=== PATIENT | female | born 2000 | race Two or more races ===

== ENCOUNTER 2024-02-17 12:39 | Outpatient (CLI) | payer OTHER ==
[2024-02-17] MEDS ORDERED: RINGERS SOLUTION,LACTATED 1,000 ML IV SCH (13:00)
[2024-02-17 13:29] LABS: PH,URINE 6.5 (5.0-8.0); URINE APPEARANCE Clear; URINE BILIRRUBIN Negative (NEGATIVE); URINE BLOOD Negative; URINE COLOR Yellow; URINE GLUCOSE Negative (NEGATIVE); URINE KETONE Negative (NEGATIVE); URINE LEUKOCYTE Negative; URINE NITRATE Negative; URINE PROTEIN Negative (NEGATIVE); URINE UROBILINOGEN 0.2 E.U./dl
[2024-02-17 13:30] LABS: URINE BACTERIA 647.5 uL (0.0-1933); URINE EPITHELIAL CELLS 55.7 uL (0.0-38.8); URINE WBC 13.1 uL (0.0-23.2)
[2024-02-17 13:32] LABS: HEMATOCRIT 31.6 % (36.0-45.00); HEMOGLOBIN 10.8 g/dL (12.0-15.00); MEAN CELL VOLUME 78.2 fL (80.00-100.00); MEAN CORPUSCULAR HEMOGLOBIN 26.7 pg (27.00-32.0); MEAN CORPUSCULAR HGB CONC 34.3 g/dl (32.0-36.0); PLATELET COUNT 216 K/uL (150-450); RED BLOOD COUNT 4.04 M/uL (4.00-6.00); RED CELL DISTRIBUTION WIDTH 16.2 % (11.5-14.5)
[2024-02-17 13:37] LABS: URINE CAST 0.15 uL (0.0-1.40)
[2024-02-17] MEDS ORDERED: PRENATAL CAPLE1 EAC1 (15:16)
== END 2024-02-17 19:38 | disposition home or self-care (01) ==
LOC: OBS/DEL 12:39
PROVIDERS: Obstetrics & Gynecology; ATTEND Specialist
DX: O26.892 Other specified pregnancy related conditions, second trimester (principal); T14.90XA Injury, unspecified, initial encounter; V49.9XXA Car occupant (driver) (passenger) injured in unspecified traffic accident, initial encounter

== ENCOUNTER 2024-04-16 00:32 | Outpatient (CLI) | payer OTHER ==
[2024-04-15 23:11] VITALS: BP 107/69; O2SAT 98
[~2024-04-16 00:32] MED LIST: PRENATAL CAPLE1 EAC1
[2024-04-16] MEDS ORDERED: RINGERS SOLUTION,LACTATED 1,000 ML IV SCH (00:45)
[2024-04-16] MEDS ORDERED: CHILDREN'S ASPI81 MG PO (01:32)
[2024-04-16] MEDS ORDERED: PRENATAL PLUS1 EAC1 PO (01:32)
[2024-04-16] MEDS ORDERED: IRON236 MG (01:33)
[2024-04-16] MEDS ORDERED: CALCIUM500 M1 (01:33)
[2024-04-16 02:10] LABS: PH,URINE 5.5 (5.0-8.0); URINE APPEARANCE Clear; URINE BILIRRUBIN Negative (NEGATIVE); URINE BLOOD Negative; URINE COLOR Yellow; URINE GLUCOSE Negative (NEGATIVE); URINE KETONE 15 (NEGATIVE); URINE LEUKOCYTE Negative; URINE NITRATE Negative; URINE PROTEIN Negative (NEGATIVE); URINE UROBILINOGEN 0.2 E.U./dl
[2024-04-16 02:12] LABS: HEMATOCRIT 30.1 % (36.0-45.00); HEMOGLOBIN 10.1 g/dL (12.0-15.00); MEAN CELL VOLUME 78.6 fL (80.00-100.00); MEAN CORPUSCULAR HEMOGLOBIN 26.3 pg (27.00-32.0); MEAN CORPUSCULAR HGB CONC 33.5 g/dl (32.0-36.0); PLATELET COUNT 217 K/uL (150-450); RED BLOOD COUNT 3.83 M/uL (4.00-6.00); RED CELL DISTRIBUTION WIDTH 16.4 % (11.5-14.5)
[2024-04-16 02:13] LABS: URINE BACTERIA 415.7 uL (0.0-1933); URINE EPITHELIAL CELLS 35.8 uL (0.0-38.8); URINE WBC 12.8 uL (0.0-23.2)
[2024-04-16 02:55] LABS: URINE RBC 1.6 uL (0.0-20.8)
[2024-04-16 03:06] LABS: ALBUMIN 2.8 gm/dL (3.4-5.0); BILIRUBIN TOTAL 0.33 mg/dL (0.3-1.2); CALCIUM 8.9 mg/dL (8.5-10.1); CREATININE SERUM 0.5 mg/dL (0.55-1.02); GFR 150.33; GLOBULINA 3.5 G/DL (2.4-3.5); POTASSIUM 3.51 mEq/L (3.5-5.1); TOTAL PROTEIN 6.3 gm/dL (6.4-8.2)
[2024-04-16 04:00] VITALS: BP 97/57
[2024-04-16 07:36] VITALS: BP 99/63; O2SAT 99
[2024-04-16 11:57] VITALS: BP 116/73
[2024-04-16 12:25] VITALS: BP 116/73
== END 2024-04-16 12:25 | disposition home or self-care (01) ==
LOC: OBS/DEL 00:32
PROVIDERS: ATTEND Specialist
DX: O99.013 Anemia complicating pregnancy, third trimester (principal); Z3A.29 29 weeks gestation of pregnancy

== ENCOUNTER 2024-06-27 07:14 | Inpatient (IN) | payer OTHER ==
[~2024-06-27] VITALS: Ht 165.1 cm; Wt 3.2 kg
[~2024-06-27 07:14] MED LIST changes: +CALCIUM500 M1; +CHILDREN'S ASPI81 MG PO; +IRON236 MG; +PRENATAL PLUS1 EAC1 PO
[2024-06-27 07:33] VITALS: BP 120/57
[2024-06-27] MEDS ORDERED: MISOPROSTOL 25 MCG/4 ML GEL.W.APPL VAG ONE (08:15)
[2024-06-27 08:42] LABS: PH,URINE 5.5 (5.0-8.0); URINE APPEARANCE Clear; URINE BILIRRUBIN Negative (NEGATIVE); URINE BLOOD Negative; URINE COLOR Yellow; URINE KETONE Negative (NEGATIVE); URINE LEUKOCYTE Negative; URINE NITRATE Negative; URINE PROTEIN Negative (NEGATIVE); URINE UROBILINOGEN 0.2 E.U./dl
[2024-06-27 08:54] LABS: HEMATOCRIT 35.7 % (36.0-45.00); HEMOGLOBIN 11.6 g/dL (12.0-15.00); MEAN CELL VOLUME 79.6 fL (80.00-100.00); MEAN CORPUSCULAR HEMOGLOBIN 25.8 pg (27.00-32.0); MEAN CORPUSCULAR HGB CONC 32.5 g/dl (32.0-36.0); PLATELET COUNT 191 K/uL (150-450); RED BLOOD COUNT 4.49 M/uL (4.00-6.00); RED CELL DISTRIBUTION WIDTH 17.3 % (11.5-14.5)
[2024-06-27 08:56] LABS: URINE BACTERIA 195.8 uL (0.0-1933); URINE EPITHELIAL CELLS 22.9 uL (0.0-38.8); URINE WBC 16.1 uL (0.0-23.2)
[2024-06-27 08:58] LABS: URINE CAST 0.14 uL (0.0-1.40); URINE GLUCOSE 250 MG/DL (NEGATIVE); URINE RBC 0.5 uL (0.0-20.8)
[2024-06-27] MEDS ORDERED: RINGERS SOLUTION,LACTATED 1,000 ML IV SCH (09:00)
[2024-06-27 09:08] LABS: INR < 0.93; PROTHROMBIN TIME 10.1 SECONDS (9.0-11.5)
[2024-06-27 09:28] LABS: ALBUMIN 2.8 gm/dL (3.4-5.0); BILIRUBIN TOTAL 0.45 mg/dL (0.3-1.2); CALCIUM 9.1 mg/dL (8.5-10.1); CREATININE SERUM 0.6 mg/dL (0.55-1.02); GFR 121.8; GLOBULINA 3.6 G/DL (2.4-3.5); POTASSIUM 3.93 mEq/L (3.5-5.1); TOTAL PROTEIN 6.4 gm/dL (6.4-8.2)
[2024-06-27] MEDS ORDERED: OXYTOCIN 500 ML IV SCH (11:45)
[2024-06-27 16:01] VITALS: BP 129/70
[2024-06-27] MEDS ORDERED: MEPERIDINE HCL/PF 50 MG/ML VIAL IV ONE (18:15)
[2024-06-27] MEDS ORDERED: PROMETHAZINE HCL 25 MG/ML AMPUL IV ONE (18:15)
[2024-06-27 18:25] VITALS: BP 143/75
[2024-06-27 20:27] VITALS: BP 136/70
[2024-06-27 23:20] VITALS: BP 130/76
[2024-06-28] MEDS ORDERED: MEPERIDINE HCL/PF 50 MG/ML VIAL IV SCH (01:00)
[2024-06-28] MEDS ORDERED: KETOROLAC TROMETHAMINE 60 MG VIAL IM ONE (01:00)
[2024-06-28] MEDS ORDERED: PROMETHAZINE HCL 25 MG/ML AMPUL IV SCH (01:00)
[2024-06-28] MEDS ORDERED: OXYTOCIN 10 UNITS/ML VIAL IV ONE (01:45)
[2024-06-28] MEDS ORDERED: ERYTHROMYCIN BASE OPHT 1GM EACH TUBE OP ONE (01:45)
[2024-06-28] MEDS ORDERED: MORPHINE SULFATE 4 MG/ML VIAL IV ONE (03:30)
[2024-06-28 05:20] VITALS: BP 121/69
[2024-06-28] MEDS ORDERED: DOCUSATE CALCIUM 240 MG CAPSULE PO SCH (09:00)
[2024-06-28] MEDS ORDERED: OxyCODONE HCL/APAP UD (PERCOCET) PO SCH (09:00)
[2024-06-28] MEDS ORDERED: SIMETHICONE 125 MG CAPSULE PO SCH (09:00)
[2024-06-28] MEDS ORDERED: CEFOXITIN SODIUM 1,000 MG in DEXTROSE 5 % IN WATER 50 ML IV SCH (09:00)
[2024-06-28 09:39] VITALS: BP 134/74
[2024-06-28 09:54] LABS: HEMATOCRIT 34.6 % (36.0-45.00); HEMOGLOBIN 11.4 g/dL (12.0-15.00); MEAN CELL VOLUME 80.2 fL (80.00-100.00); MEAN CORPUSCULAR HEMOGLOBIN 26.4 pg (27.00-32.0); MEAN CORPUSCULAR HGB CONC 32.9 g/dl (32.0-36.0); PLATELET COUNT 168 K/uL (150-450); RED BLOOD COUNT 4.31 M/uL (4.00-6.00); RED CELL DISTRIBUTION WIDTH 17.2 % (11.5-14.5)
[2024-06-28 16:12] VITALS: BP 136/74
[2024-06-28] MEDS ORDERED: IBUprofen 800 MG TABLET PO SCH (17:00)
[2024-06-28 19:00] VITALS: BP 107/68
[2024-06-29 01:13] VITALS: BP 101/60
[2024-06-29 08:21] VITALS: BP 115/71
[2024-06-29 18:27] VITALS: BP 116/76
[2024-06-29] MEDS ORDERED: DIPHENHYDRAMINE HCL 25 MG CAPSULE PO STA (18:49)
[2024-06-29] MEDS ORDERED: DIPHENHYDRAMINE HCL 25 MG CAPSULE PO PRN (19:00)
[2024-06-30 00:41] VITALS: BP 119/73
[2024-06-30] MEDS ORDERED: IBU800 MG PO (07:46)
[2024-06-30] MEDS ORDERED: SIMETHICONE125 M1 PO (07:47)
[2024-06-30] MEDS ORDERED: SURFAK240 M1 PO (07:47)
[2024-06-30 11:03] VITALS: BP 125/78
== END 2024-06-30 11:55 | disposition home or self-care (01) | DRG 788 ==
LOC: LDR 07:14 → OB/GYN 06-28 02:23
PROVIDERS: ADMIT Specialist; ATTEND Specialist
PROC: 3E0P7VZ Introduction of Hormone into Female Reproductive, Via Natural or Artificial Opening (ICD-10-PCS; 2024-06-27)
PROC: 4A1HXCZ Monitoring of Products of Conception, Cardiac Rate, External Approach (ICD-10-PCS; 2024-06-27)
PROC: 10D00Z1 Extraction of Products of Conception, Low, Open Approach (ICD-10-PCS; principal; 2024-06-28)
PROC: 3E033VJ Introduction of Other Hormone into Peripheral Vein, Percutaneous Approach (ICD-10-PCS; 2024-06-28)
DX: O62.1 Secondary uterine inertia (principal); O82 Encounter for cesarean delivery without indication; Z3A.40 40 weeks gestation of pregnancy; Z37.0 Single live birth; Z20.822 Contact with and (suspected) exposure to COVID-19